=== PATIENT | male | born 1975 | race Caucasian/White ===

== ENCOUNTER → 2016-07-14 | Outpatient (REF) | payer OTHER ==
[~2016-07-14] MED LIST: /ACETCOD2T PO; ACET50TA PO; BUTR5DIS2 TD; CENTTAB47 PO; CETI10TA PO; CYCL10TA3 PO; FOLI400T PO; IBUPPOW25 PO; LYRI75CA PO; NAPR500T2 PO; NASA55AE; PROAAER INH; ULTR50TA PO; VITA100T18 PO; VITATAB11 PO; vitamin d2 PO
[2016-07-14 13:19] LABS: ALBUMIN 3.9 GM/DL (3.2-5.2); ALBUMIN/GLOBULIN RATIO 1.15 (1.00-1.93); ALKALINE PHOSPHATASE 79 U/L (45-117); ALT/SGPT 34 U/L (12-78); ANION GAP 8 MEQ/L (8-16); AST/SGOT 37 U/L (15-37); BILIRUBIN,TOTAL 0.6 MG/DL (0.2-1.0); BLOOD UREA NITROGEN 15 MG/DL (7-18); CALCIUM LEVEL 9.1 MG/DL (8.5-10.1); CARBON DIOXIDE LEVEL 29 MEQ/L (21-32); CHLORIDE LEVEL 103 MEQ/L (98-107); CHOLESTEROL LEVEL 159 MG/DL (<200); CREATININE FOR GFR 1.05 MG/DL (0.70-1.30); GLOMERULAR FILTRATION RATE > 60.0 (>60); GLUCOSE, FASTING 90 MG/DL (70-105); POTASSIUM SERUM 4.1 MEQ/L (3.5-5.1); SODIUM LEVEL 140 MEQ/L (136-145); TOTAL PROTEIN 7.3 GM/DL (6.4-8.2); TRIGLYCERIDES LEVEL 128 MG/DL (<150); URIC ACID 6.4 MG/DL (3.5-7.2)
== END ==
LOC: M SFHCPLAZ 11:06
PROVIDERS: ATTEND Family Medicine
DX: E66.01 Morbid (severe) obesity due to excess calories (principal); M13.0 Polyarthritis, unspecified

== ENCOUNTER 2016-08-29 10:26 | Emergency (ER) | payer OTHER ==
[~2016-08-29] VITALS: Ht 180.3 cm; Wt 140.6 kg
[2016-08-29 10:27] VITALS: BP 164/81
[2016-08-29] MEDS ORDERED: TYLE325T5 PO (10:49)
[2016-08-29] MEDS ORDERED: CLEO300C2 PO (11:34)
[2016-08-29] MEDS ORDERED: IBUP80TA PO (11:34)
[2016-08-30] MEDS ORDERED: PRED50TA PO (11:29)
[2016-08-30] MEDS ORDERED: BENA25TA9 PO (11:30)
[2016-08-30] MEDS ORDERED: TYLETAB14 PO (11:33)
[2016-08-30] MEDS ORDERED: ZITHTAB PO (11:35)
== END 2016-08-29 11:42 | disposition home or self-care (01) ==
LOC: M ED 11:34
DX: K02.9 Dental caries, unspecified (principal); Z88.0 Allergy status to penicillin

== ENCOUNTER 2016-08-30 09:31 | Emergency (ER) | payer OTHER ==
[~2016-08-30] VITALS: Ht 180.3 cm; Wt 140.6 kg
[~2016-08-30 09:31] MED LIST changes: +CLEO300C2 PO; +IBUP80TA PO; +TYLE325T5 PO
[2016-08-30] MEDS ORDERED: diphenhydrAMINE INJ 50MG/ML VIAL (J1200) IV STA (09:40)
[2016-08-30] MEDS ORDERED: methylPREDNISolone INJ 125 MG/2 ML VIAL (J2930) IV ONE (09:45)
[2016-08-30] MEDS ORDERED: FAMOTIDINE INJ 20MG/2ML VIAL (S0028) IVP ONE (09:45)
[2016-08-30] MEDS ORDERED: PRED50TA PO (11:29)
[2016-08-30] MEDS ORDERED: BENA25TA9 PO (11:30)
[2016-08-30] MEDS ORDERED: TYLETAB14 PO (11:33)
[2016-08-30] MEDS ORDERED: ZITHTAB PO (11:35)
[2016-08-30 11:40] VITALS: BP 174/74
== END 2016-08-30 11:47 | disposition home or self-care (01) ==
LOC: M ED 10:15
DX: R21 Rash and other nonspecific skin eruption (principal); T78.40XA Allergy, unspecified, initial encounter; G43.909 Migraine, unspecified, not intractable, without status migrainosus; Z79.899 Other long term (current) drug therapy; Z79.51 Long term (current) use of inhaled steroids; Z88.0 Allergy status to penicillin
CPT/HCPCS: 96374; 96375; 99283; J1200; J2930

== ENCOUNTER → 2016-09-02 | Outpatient (REF) | payer OTHER ==
[~2016-09-02] MED LIST changes: +BENA25TA9 PO; +PRED50TA PO; +TYLETAB14 PO; +ZITHTAB PO
== END ==
LOC: M SFHCPLAZ 11:40
PROVIDERS: ATTEND Family Medicine
DX: E55.9 Vitamin D deficiency, unspecified (principal)

== ENCOUNTER → 2016-09-11 | Outpatient (REF) | payer OTHER | LOC: M SFHCPLAZ 09:42 | PROVIDERS: ATTEND Family Medicine | DX: E55.9 Vitamin D deficiency, unspecified (principal) ==

== ENCOUNTER 2017-03-13 11:29 | Emergency (ER) | payer OTHER ==
[~2017-03-13] VITALS: Ht 180.3 cm; Wt 143.2 kg
[~2017-03-13 11:29] MED LIST changes: +BENA25TA10 PO; -BENA25TA9 PO
[2017-03-13] MEDS ORDERED: NAPR500T PO (11:43)
[2017-03-13] MEDS ORDERED: GABA-283 PO (11:43)
[2017-03-13] MEDS ORDERED: ZOFR4TAB3 PO (11:43)
[2017-03-13] MEDS ORDERED: NS 1,000 ML IV ONE (13:00)
[2017-03-13 13:56] LABS: BASO % 0.1 % (0.0-1.0); EOS % 0.1 % (0.0-3.0); IMMATURE GRANULOCYTE % 0.4 % (0-0); LYMPH # 1.3 10^3/uL (1.5-4.5); MEAN CORPUSCULAR HGB CONC 34.8 g/dl (32.0-36.5); MEAN CORPUSCULAR VOLUME 86.3 fl (80.0-96.0); MONO # 1.3 10^3/uL (0.0-0.8); MONO % 6.4 % (0.0-5.0); PLATELET COUNT, AUTOMATED 193 10^3/uL (150-450); WHITE BLOOD COUNT 20.7 10^3/uL (4.0-10.0)
--- NOTE | 2017-03-13 14:07 | REP ---
CHEST X-RAY: Two views. HISTORY: Malaise. Cough. Chills. COMPARISON STUDY: July 29, 2011. FINDINGS: There is a new infiltrate in the right lower lobe consistent with right lower lobe pneumonia. Left lung is clear. No hilar or mediastinal mass or adenopathy is observed. No significant bony abnormality is seen. Pulmonary vasculature is not increased. IMPRESSION: Right lower lobe pneumonia. Signed by Reece Naranjo MD 03/13/2017 03:15 P
[2017-03-13 14:31] LABS: ALBUMIN 3.4 GM/DL (3.2-5.2); ALBUMIN/GLOBULIN RATIO 0.94 (1.00-1.93); ALKALINE PHOSPHATASE 84 U/L (45-117); ALT/SGPT 21 U/L (12-78); ANION GAP 11 MEQ/L (8-16); AST/SGOT 18 U/L (15-37); BILIRUBIN,DIRECT 0.6 MG/DL (0.0-0.2); BILIRUBIN,TOTAL 1.4 MG/DL (0.2-1.0); BLOOD UREA NITROGEN 16 MG/DL (7-18); CARBON DIOXIDE LEVEL 25 MEQ/L (21-32); CHLORIDE LEVEL 100 MEQ/L (98-107); CREATININE FOR GFR 1.16 MG/DL (0.70-1.30); GLOMERULAR FILTRATION RATE > 60.0 (>60); GLUCOSE, FASTING 120 MG/DL (70-105); POTASSIUM SERUM 3.9 MEQ/L (3.5-5.1); SODIUM LEVEL 136 MEQ/L (136-145)
[2017-03-13] MEDS ORDERED: LevoFLOXacin IV 750 MG in APPROPRIATE DILUENT 1 EA IV ONE (15:15)
[2017-03-13] MEDS ORDERED: KETOROLAC 30 MG/ML VIAL (J1885) IV ONE (15:15)
[2017-03-13 15:49] LABS: YEAST LIKE CELL URINE AUTO SMALL
[2017-03-13] MEDS ORDERED: MUCI600T37 PO (17:03)
[2017-03-13] MEDS ORDERED: BENZ200C53 PO (17:03)
[2017-03-13] MEDS ORDERED: LEVA750T7 PO (17:03)
[2017-03-13 17:27] VITALS: BP 157/93
== END 2017-03-13 17:20 | disposition home or self-care (01) ==
LOC: M ED 11:29
DX: J18.9 Pneumonia, unspecified organism (principal); E86.0 Dehydration; Z88.0 Allergy status to penicillin; Z79.899 Other long term (current) drug therapy
CPT/HCPCS: 71020; 80048; 80076; 81001; 82550; 83605; 85025; 87086; 87804; 87880; 96374; 96375; 99284; J1885; J1956

== ENCOUNTER → 2017-10-07 | Outpatient (REF) | payer OTHER ==
[2017-10-07 12:31] LABS: ALBUMIN 3.7 GM/DL (3.2-5.2); ALKALINE PHOSPHATASE 84 U/L (45-117); ALT/SGPT 23 U/L (12-78); ANION GAP 7 MEQ/L (8-16); AST/SGOT 26 U/L (7-37); BILIRUBIN,TOTAL 0.4 MG/DL (0.2-1.0); BLOOD UREA NITROGEN 13 MG/DL (7-18); CARBON DIOXIDE LEVEL 26 MEQ/L (21-32); CHLORIDE LEVEL 105 MEQ/L (98-107); CREATININE FOR GFR 1.13 MG/DL (0.70-1.30); GLOMERULAR FILTRATION RATE > 60.0 (>60); GLUCOSE, FASTING 119 MG/DL (70-100); NT-PRO BNP 32 PG/ML (<125); SODIUM LEVEL 138 MEQ/L (136-145); TOTAL PROTEIN 7.4 GM/DL (6.4-8.2)
== END ==
LOC: M SFHCPLAZ 08:50
DX: R35.1 Nocturia (principal); F10.10 Alcohol abuse, uncomplicated

== ENCOUNTER → 2018-04-06 | Outpatient (REF) | payer OTHER ==
[2018-04-06 14:15] LABS: MAU/CREAT RATIO 150.7 MCG/MG (0.0-30.0)
[2018-04-06 14:39] LABS: ESTIMATED AVERAGE GLUCOSE 105 MG/DL (60-110); HEMOGLOBIN A1c 5.3 %
== END ==
LOC: M SFHCPLAZ 09:47
DX: Z13.1 Encounter for screening for diabetes mellitus (principal); I10 Essential (primary) hypertension
CPT/HCPCS: 83036

== ENCOUNTER 2018-07-29 17:35 | Emergency (ER) | payer OTHER ==
[~2018-07-29] VITALS: Ht 180.3 cm; Wt 140.9 kg
[~2018-07-29 17:35] MED LIST changes: +BENZ200C70 PO; +GABA-845 PO; +LEVA750T7 PO; +MUCI600T37 PO; +NAPR-50 PO; +ZOFR4TAB14 PO
[2018-07-29] MEDS ORDERED: NALT50TA4 PO (17:58)
[2018-07-29] MEDS ORDERED: VITA50005 PO (17:58)
[2018-07-29] MEDS ORDERED: AZEL1SPR3 (17:58)
[2018-07-29] MEDS ORDERED: BUPR1TAB53 PO (17:58)
[2018-07-29] MEDS ORDERED: CYCL10TA PO (17:58)
[2018-07-29] MEDS ORDERED: LEVOTAB10 PO (17:58)
[2018-07-29] MEDS ORDERED: LISI10TA4 PO (17:58)
[2018-07-29] MEDS ORDERED: FLUTISP (17:58)
[2018-07-29 19:22] LABS: INFLUENZA A AMPLIFICATION POSITIVE (NEGATIVE); INFLUENZA B AMPLIFICATION NEGATIVE (NEGATIVE)
[2018-07-29] MEDS ORDERED: MUCI600T37 PO (21:14)
[2018-07-29] MEDS ORDERED: ONDA4TAB6 PO (21:14)
[2018-07-29] MEDS ORDERED: BENZ200C70 PO (21:14)
[2018-07-29] MEDS ORDERED: ONDANSETRON 4 MG ORAL DISINTEGRATING TAB (Q0162 PER 1MG) PO ONE (21:15)
[2018-07-29] MEDS ORDERED: BENZONATATE 100 MG CAP PO ONE (21:15)
[2018-07-29 21:21] VITALS: BP 128/69
== END 2018-07-29 21:30 | disposition home or self-care (01) ==
LOC: M ED 17:35
DX: J09.X2 Influenza due to identified novel influenza A virus with other respiratory manifestations (principal); R11.0 Nausea; R19.7 Diarrhea, unspecified; I10 Essential (primary) hypertension; J45.909 Unspecified asthma, uncomplicated; G61.0 Guillain-Barre syndrome; G43.909 Migraine, unspecified, not intractable, without status migrainosus; Z88.0 Allergy status to penicillin; Z79.899 Other long term (current) drug therapy; Z79.1 Long term (current) use of non-steroidal anti-inflammatories (NSAID)
CPT/HCPCS: 87502; 99283; Q0162

== ENCOUNTER 2018-12-20 09:42 | Emergency (ER) | payer OTHER ==
[~2018-12-20] VITALS: Ht 180.3 cm; Wt 139.6 kg
[~2018-12-20 09:42] MED LIST changes: -/ACETCOD2T PO; +ACET1TAB15 PO; -ACET50TA PO; +AZEL1SPR3; +BUPR1TAB53 PO; +CYCL10TA PO; +FLUTISP; +LEVOTAB10 PO; +LISI10TA4 PO; +MAPA500T17 PO; +NALT50TA4 PO; -NAPR-50 PO; +NAPR-837 PO; +ONDA4TAB6 PO; +VITA50005 PO
[2018-12-20] MEDS ORDERED: LOSA50TA88 (10:15)
[2018-12-20] MEDS ORDERED: AZIT-12 PO (10:53)
[2018-12-20 11:01] VITALS: BP 140/95
== END 2018-12-20 11:04 | disposition home or self-care (01) ==
LOC: M ED 09:42
DX: H66.92 Otitis media, unspecified, left ear (principal); I10 Essential (primary) hypertension; J45.909 Unspecified asthma, uncomplicated; G43.909 Migraine, unspecified, not intractable, without status migrainosus; Z79.899 Other long term (current) drug therapy; Z88.0 Allergy status to penicillin

== ENCOUNTER → 2018-12-23 | Outpatient (REF) | payer OTHER ==
[~2018-12-23] MED LIST changes: +AZIT-12 PO; +LOSA50TA88
[2018-12-24 14:12] LABS: Lyme Disease IgG/IgM Antibodie <0.91 ISR (0.00-0.90); Lyme Disease IgM Ab Quantitati <0.80 index (0.00-0.79)
== END ==
LOC: M SFHCPLAZ 10:06
PROVIDERS: ATTEND Family Medicine
DX: M15.4 Erosive (osteo)arthritis (principal)

== ENCOUNTER → 2019-03-03 | Outpatient (REF) | payer OTHER ==
[2019-03-03 12:55] LABS: HEMOGLOBIN A1c 5.6 %
== END ==
LOC: M SFHCPLAZ 10:06
PROVIDERS: ATTEND Family Medicine
DX: M13.0 Polyarthritis, unspecified (principal); Z68.41 Body mass index [BMI] 40.0-44.9, adult

== ENCOUNTER → 2019-05-23 | Outpatient (CLI) | payer OTHER ==
[2019-05-23 18:34] LABS: HEMOGLOBIN A1c 5.4 %
== END ==
LOC: M PLALAB 13:30
PROVIDERS: ATTEND Family Medicine
DX: M13.0 Polyarthritis, unspecified (principal); Z68.41 Body mass index [BMI] 40.0-44.9, adult

== ENCOUNTER → 2020-03-22 | Outpatient (REF) | payer OTHER ==
[~2020-03-22] MED LIST changes: +CYCL-707 PO; -CYCL10TA PO
[2020-03-22 14:05] LABS: HEMATOCRIT 47.7 % (42.0-52.0); HEMOGLOBIN 15.9 g/dl (13.5-17.5); MEAN CORPUSCULAR HEMOGLOBIN 29.2 pg (27.0-33.0); MEAN CORPUSCULAR HGB CONC 33.3 g/dl (32.0-36.5); MEAN CORPUSCULAR VOLUME 87.5 fl (80.0-96.0); PLATELET COUNT, AUTOMATED 219 10^3/uL (150-450); RED BLOOD COUNT 5.45 10^6/uL (4.30-6.10); WHITE BLOOD COUNT 9.4 10^3/uL (4.0-10.0)
[2020-03-22 14:30] LABS: HEMOGLOBIN A1c 5.6 %
[2020-03-22 14:42] LABS: ALBUMIN 3.7 GM/DL (3.2-5.2); ALT/SGPT 32 U/L (12-78); BILIRUBIN,TOTAL 0.7 MG/DL (0.2-1.0); BLOOD UREA NITROGEN 16 MG/DL (7-18); CALCIUM LEVEL 9.1 MG/DL (8.5-10.1); CARBON DIOXIDE LEVEL 28 MEQ/L (21-32); CHLORIDE LEVEL 103 MEQ/L (98-107); CHOLESTEROL LEVEL 143 MG/DL (<200); CHOLESTEROL RISK RATIO 3.404 (<5); CREATININE FOR GFR 1.33 MG/DL (0.70-1.30); FREE T4 1.22 NG/DL (0.76-1.46); GLOMERULAR FILTRATION RATE > 60.0 (>60); GLUCOSE, FASTING 96 MG/DL (70-100); HDL CHOLESTEROL 42 MG/DL (>40); LDL CHOLESTEROL 78 MG/DL (<100); NON-HDL-C 101 MG/DL; SODIUM LEVEL 136 MEQ/L (136-145); TOTAL PROTEIN 7.3 GM/DL (6.4-8.2); TRIGLYCERIDES LEVEL 113 MG/DL (<150)
[2020-03-22 14:46] LABS: TOTAL 25(OH) VITAMIN D 44.1 NG/ML (30.0-100.0)
[2020-03-22 14:47] LABS: MAU/CREAT RATIO 133.7 MCG/MG (0.0-30.0)
== END ==
LOC: M SFHCPLAZ 10:19
PROVIDERS: ATTEND Physician Assistant
DX: J45.20 Mild intermittent asthma, uncomplicated (principal); I10 Essential (primary) hypertension; Z13.29 Encounter for screening for other suspected endocrine disorder; E66.01 Morbid (severe) obesity due to excess calories; Z13.220 Encounter for screening for lipoid disorders; E55.9 Vitamin D deficiency, unspecified

== ENCOUNTER → 2021-04-04 | Outpatient (CLI) | payer OTHER ==
[~2021-04-04] MED LIST changes: +GABA-283 PO; -GABA-845 PO; +LISI10TA22 PO; -LISI10TA4 PO
[2021-04-04 13:40] LABS: BASO % 0.4 % (0.0-1.0); EOS # 0.2 10^3/uL (0.0-0.5); EOS % 2.4 % (0.0-3.0); HEMATOCRIT 47.8 % (42.0-52.0); HEMOGLOBIN 15.9 g/dl (13.5-17.5); LYMPH # 2.7 10^3/uL (1.5-5.0); MEAN CORPUSCULAR HEMOGLOBIN 29.6 pg (27.0-33.0); MEAN CORPUSCULAR HGB CONC 33.3 g/dl (32.0-36.5); MEAN CORPUSCULAR VOLUME 88.8 fl (80.0-96.0); MONO # 0.6 10^3/uL (0.0-0.8); MONO % 5.7 % (2.0-8.0); NEUTROPHILS # 6.2 10^3/uL (1.5-8.5); NEUTROPHILS % 63.2 % (36.0-66.0); PLATELET COUNT, AUTOMATED 202 10^3/uL (150-450); RED BLOOD COUNT 5.38 10^6/uL (4.30-6.10); WHITE BLOOD COUNT 9.7 10^3/uL (4.0-10.0)
[2021-04-04 14:00] LABS: HEMOGLOBIN A1c 5.9 %
[2021-04-04 14:20] LABS: ALBUMIN 3.5 GM/DL (3.2-5.2); ALT/SGPT 29 U/L (12-78); BILIRUBIN,TOTAL 0.7 MG/DL (0.2-1.0); BLOOD UREA NITROGEN 14 MG/DL (7-18); CALCIUM LEVEL 9.4 MG/DL (8.5-10.1); CARBON DIOXIDE LEVEL 27 MEQ/L (21-32); CHLORIDE LEVEL 104 MEQ/L (98-107); CHOLESTEROL LEVEL 172 MG/DL (<200); CHOLESTEROL RISK RATIO 4.095 (<5); CREATININE FOR GFR 1.17 MG/DL (0.70-1.30); FREE T4 1.33 NG/DL (0.76-1.46); GLOMERULAR FILTRATION RATE > 60.0 (>60); GLUCOSE, FASTING 109 MG/DL (70-100); HDL CHOLESTEROL 42 MG/DL (>40); LDL CHOLESTEROL 105 MG/DL (<100); NON-HDL-C 130 MG/DL; NT-PRO BNP 28 PG/ML (<125); POTASSIUM SERUM 4.1 MEQ/L (3.5-5.1); SODIUM LEVEL 137 MEQ/L (136-145); TOTAL PROTEIN 7.5 GM/DL (6.4-8.2); TRIGLYCERIDES LEVEL 124 MG/DL (<150)
[2021-04-04 14:23] LABS: PTH INTACT 57.7 PG/ML (18.5-88.0); TOTAL 25(OH) VITAMIN D 43.7 NG/ML (30.0-100.0)
== END ==
LOC: M PLALAB 09:54
PROVIDERS: ATTEND Physician Assistant Medical
DX: I10 Essential (primary) hypertension (principal); E55.9 Vitamin D deficiency, unspecified; E66.01 Morbid (severe) obesity due to excess calories

== ENCOUNTER → 2021-07-09 | Outpatient (CLI) | payer OTHER ==
[~2021-07-09] MED LIST changes: +LOSA50TA28; -LOSA50TA88
[2021-07-09 14:20] LABS: FREE T4 1.19 NG/DL (0.76-1.46); THYROID STIMULATING HORMONE 1.41 uIU/ML (0.358-3.740)
[2021-07-10 18:08] LABS: TESTOSTERONE FREE (DIRECT) 6.9 pg/mL (6.8-21.5)
== END ==
LOC: M PLALAB 10:50
PROVIDERS: ATTEND Physician Assistant Medical
DX: E66.01 Morbid (severe) obesity due to excess calories (principal)

== ENCOUNTER → 2021-10-08 | Outpatient (CLI) | payer OTHER ==
[2021-10-08 10:42] LABS: BASO % 0.4 % (0.0-1.0); EOS # 0.2 10^3/uL (0.0-0.5); HEMATOCRIT 43.5 % (42.0-52.0); HEMOGLOBIN 14.8 g/dl (13.5-17.5); LYMPH # 2.3 10^3/uL (1.5-5.0); LYMPH % 30.2 % (24.0-44.0); MEAN CORPUSCULAR HEMOGLOBIN 30.5 pg (27.0-33.0); MEAN CORPUSCULAR VOLUME 89.7 fl (80.0-96.0); MONO # 0.4 10^3/uL (0.0-0.8); NEUTROPHILS # 4.7 10^3/uL (1.5-8.5); PLATELET COUNT, AUTOMATED 181 10^3/uL (150-450); RED BLOOD COUNT 4.85 10^6/uL (4.30-6.10); WHITE BLOOD COUNT 7.7 10^3/uL (4.0-10.0)
[2021-10-08 10:53] LABS: INR 0.98; PARTIAL THROMBOPLASTIN TIME 31.7 SECONDS (25.9-37.0); PROTHROMBIN TIME 13.4 SECONDS (12.7-14.5)
[2021-10-08 11:11] LABS: ALBUMIN 3.6 GM/DL (3.2-5.2); ALT/SGPT 28 U/L (12-78); BILIRUBIN,TOTAL 0.6 MG/DL (0.2-1.0); BLOOD UREA NITROGEN 16 MG/DL (7-18); CARBON DIOXIDE LEVEL 25 MEQ/L (21-32); CHLORIDE LEVEL 107 MEQ/L (98-107); CREATININE FOR GFR 1.12 MG/DL (0.70-1.30); GLOMERULAR FILTRATION RATE > 60.0 (>60); GLUCOSE, FASTING 99 MG/DL (70-100); SODIUM LEVEL 139 MEQ/L (136-145); TOTAL PROTEIN 6.9 GM/DL (6.4-8.2)
== END ==
LOC: M PLALAB 06:45
PROVIDERS: ATTEND Physician Assistant Medical
DX: R58 Hemorrhage, not elsewhere classified (principal)

== ENCOUNTER 2022-02-01 14:08 | Emergency (ER) | payer OTHER ==
[~2022-02-01] VITALS: Ht 180.3 cm; Wt 145.0 kg
[2022-02-01] MEDS ORDERED: HYDR100C (14:18)
[2022-02-01] MEDS ORDERED: LIDOCAINE 5% (LIDODERM) PATCH TD ONE (16:20)
[2022-02-01] MEDS ORDERED: ACETAMINOPHEN 500 MG TAB PO ONE (16:20)
[2022-02-01] MEDS ORDERED: diazePAM 10MG/2ML SYRINGE (J3360 PER 5MG) IV ONE ×2 (16:20→18:05)
[2022-02-01] MEDS ORDERED: methylPREDNISolone 125MG 2ML VIAL IV ONE (16:20)
[2022-02-01 16:46] LABS: BASO # 0.1 10^3/uL (0.0-0.2); BASO % 0.5 % (0.0-1.0); EOS # 0.3 10^3/uL (0.0-0.5); EOS % 2.6 % (0.0-3.0); HEMATOCRIT 46.7 % (42.0-52.0); HEMOGLOBIN 16.1 g/dl (13.5-17.5); LYMPH # 2.6 10^3/uL (1.5-5.0); LYMPH % 23.7 % (24.0-44.0); MEAN CORPUSCULAR HEMOGLOBIN 29.7 pg (27.0-33.0); MEAN CORPUSCULAR HGB CONC 34.5 g/dl (32.0-36.5); MEAN CORPUSCULAR VOLUME 86.2 fl (80.0-96.0); MONO # 0.7 10^3/uL (0.0-0.8); MONO % 6.2 % (2.0-8.0); NEUTROPHILS # 7.4 10^3/uL (1.5-8.5); NEUTROPHILS % 66.5 % (36.0-66.0); PLATELET COUNT, AUTOMATED 212 10^3/uL (150-450); RED BLOOD COUNT 5.42 10^6/uL (4.30-6.10); WHITE BLOOD COUNT 11.1 10^3/uL (4.0-10.0)
[2022-02-01 17:11] LABS: ERYTHROCYTE SEDIMENTATION RATE 7 mm/hr (0-15)
[2022-02-01] MEDS ORDERED: ASPE4PAD TOP (19:11)
[2022-02-01] MEDS ORDERED: PRED20TA PO (19:11)
[2022-02-01] MEDS ORDERED: HYDR-3713 PO (19:11)
[2022-02-01 19:19] VITALS: BP 135/80
[2022-02-01] MEDS ORDERED: **NOTE PATIENT COMMENT** MISC XX SCH (21:00)
== END 2022-02-01 19:22 | disposition home or self-care (01) ==
LOC: M ED 14:08
DX: M54.6 Pain in thoracic spine (principal); M54.50 Low back pain, unspecified; M47.816 Spondylosis without myelopathy or radiculopathy, lumbar region; I10 Essential (primary) hypertension; J45.909 Unspecified asthma, uncomplicated; Z79.899 Other long term (current) drug therapy; Z88.0 Allergy status to penicillin
CPT/HCPCS: 72128; 72131; 76775; 80047; 81000; 81015; 85025; 85652; 86140; 87086; 96374; 96375; 96376; 99284; J2930; J3360

== ENCOUNTER → 2022-02-07 | Outpatient (CLI) | payer OTHER ==
[~2022-02-07] MED LIST changes: +ASPE4PAD TOP; +HYDR-3713 PO; +HYDR100C; +PRED20TA PO
== END ==
LOC: M RAD 10:21
PROVIDERS: ATTEND Physician Assistant
DX: R10.32 Left lower quadrant pain (principal); R31.9 Hematuria, unspecified; N50.812 Left testicular pain

== ENCOUNTER → 2022-06-10 | Outpatient (CLI) | payer OTHER ==
[2022-06-10 10:32] LABS: BASO % 0.4 % (0.0-1.0); EOS # 0.2 10^3/uL (0.0-0.5); EOS % 2.8 % (0.0-3.0); HEMATOCRIT 44.4 % (42.0-52.0); HEMOGLOBIN 14.9 g/dl (13.5-17.5); LYMPH # 2.3 10^3/uL (1.5-5.0); LYMPH % 31.2 % (24.0-44.0); MEAN CORPUSCULAR HGB CONC 33.6 g/dl (32.0-36.5); MEAN CORPUSCULAR VOLUME 86.5 fl (80.0-96.0); MONO # 0.5 10^3/uL (0.0-0.8); MONO % 6.7 % (2.0-8.0); NEUTROPHILS # 4.3 10^3/uL (1.5-8.5); NEUTROPHILS % 58.6 % (36.0-66.0); PLATELET COUNT, AUTOMATED 171 10^3/uL (150-450); RED BLOOD COUNT 5.13 10^6/uL (4.30-6.10); WHITE BLOOD COUNT 7.4 10^3/uL (4.0-10.0)
[2022-06-10 10:55] LABS: HEMOGLOBIN A1c 5.8 % (4.0-6.0)
[2022-06-10 10:59] LABS: ALBUMIN 3.5 G/DL (3.2-5.2); ALKALINE PHOSPHATASE 85 U/L (46-116); ALT/SGPT 18 U/L (7.0-40); AST/SGOT 24 U/L (<34); BILIRUBIN,TOTAL 0.5 MG/DL (0.3-1.2); BLOOD UREA NITROGEN 16 MG/DL (9-23); CALCIUM LEVEL 8.9 MG/DL (8.5-10.1); CARBON DIOXIDE LEVEL 26 MMOL/L (20-31); CHLORIDE LEVEL 103 MMOL/L (98-107); CHOLESTEROL LEVEL 139 MG/DL (<200); CHOLESTEROL RISK RATIO 3.72 (<5); CREATININE FOR GFR 0.94 MG/DL (0.70-1.30); GLOMERULAR FILTRATION RATE > 60.0 (>60); GLUCOSE, FASTING 158 MG/DL (60-100); HDL CHOLESTEROL 37.3 MG/DL (>40); LDL CHOLESTEROL 77.1 MG/DL (<100); NON-HDL-C 102 MG/DL; POTASSIUM SERUM 3.9 MMOL/L (3.5-5.1); SODIUM LEVEL 136 MMOL/L (136-145); TOTAL PROTEIN 6.5 G/DL (5.7-8.2); TRIGLYCERIDES LEVEL 123 MG/DL (<150)
== END ==
LOC: M PLALAB 07:52
PROVIDERS: ATTEND Physician Assistant Medical
DX: R31.9 Hematuria, unspecified (principal); E66.01 Morbid (severe) obesity due to excess calories; I10 Essential (primary) hypertension; Z13.220 Encounter for screening for lipoid disorders

== ENCOUNTER → 2023-01-22 | Outpatient (CLI) | payer OTHER ==
[~2023-01-22] MED LIST changes: +FLUT50SP17; -FLUTISP; -GABA-283 PO; +GABA-284 PO
[2023-01-22 15:09] LABS: ALBUMIN 3.5 G/DL (3.2-5.2); ALKALINE PHOSPHATASE 84 U/L (46-116); ALT/SGPT 21 U/L (7.0-40); AST/SGOT 31 U/L (<34); BILIRUBIN,TOTAL 0.6 MG/DL (0.3-1.2); BLOOD UREA NITROGEN 13 MG/DL (9-23); CALCIUM LEVEL 8.8 MG/DL (8.5-10.1); CARBON DIOXIDE LEVEL 28 MMOL/L (20-31); CHLORIDE LEVEL 104 MMOL/L (98-107); CREATININE FOR GFR 0.87 MG/DL (0.70-1.30); GLOMERULAR FILTRATION RATE > 60.0 (>60); GLUCOSE, FASTING 128 MG/DL (60-100); SODIUM LEVEL 138 MMOL/L (136-145); TOTAL PROTEIN 6.6 G/DL (5.7-8.2)
[2023-01-22 15:23] LABS: HEMOGLOBIN A1c 6.4 % (4.0-6.0)
== END ==
LOC: M PLALAB 09:41
PROVIDERS: ATTEND Physician Assistant Medical
DX: I10 Essential (primary) hypertension (principal); E66.01 Morbid (severe) obesity due to excess calories

== ENCOUNTER 2023-11-12 12:55 | Emergency (ER) | payer OTHER ==
[~2023-11-12] VITALS: Ht 180.3 cm; Wt 139.6 kg
[~2023-11-12 12:55] MED LIST changes: -FLUT50SP17; +FLUTISP; +ONDA-282 PO; -ONDA4TAB6 PO
[2023-11-12] MEDS: methylPREDNISolone 125MG 2ML VIAL IV ONE (13:33)
[2023-11-12] MEDS: diphenhydrAMINE 50MG/ML VIAL IV ONE (13:33)
[2023-11-12] MEDS: FAMOTIDINE 20MG/2ML VIAL IVP ONE (13:33)
[2023-11-12] MEDS ORDERED: IBUP80TA (16:49)
[2023-11-12] MEDS ORDERED: CLIN-250 (16:49)
[2023-11-12] MEDS ORDERED: PEPC1TAB5 PO (17:41)
[2023-11-12] MEDS ORDERED: BENA25CA4 PO (17:41)
[2023-11-12] MEDS ORDERED: PRED20TA PO (17:41)
[2023-11-12 18:00] VITALS: BP 148/78; TEMP 97.2; O2SAT 98
== END 2023-11-12 18:02 | disposition home or self-care (01) ==
LOC: M ED 12:55
DX: T36.8X5A Adverse effect of other systemic antibiotics, initial encounter (principal); L29.9 Pruritus, unspecified; R21 Rash and other nonspecific skin eruption; I10 Essential (primary) hypertension; J45.909 Unspecified asthma, uncomplicated; Z79.899 Other long term (current) drug therapy; Z88.0 Allergy status to penicillin
CPT/HCPCS: 93041; 94760; 96374; 96375; 99285; J1200; J2919; S0028